=== PATIENT | male | born 1975 | race Caucasian/White ===

== ENCOUNTER 2017-05-15 03:44 | Emergency (ER) | payer OTHER ==
--- NOTE | 2017-05-15 04:25 | ED Physician Documentation ---
PD HPI FEVER - Stated complaint Stated Complaint: CHILLS,LWR BACK PAIN - Chief complaint Chief Complaint: Fever - History obtained from History obtained from: Patient - History of Present Illness Timing - onset: How many days ago (3) Timing duration: Days Timing details: Intermittant, Waxing and waning Associated symptoms: Chills, Sweats, Rigors Recently seen: Clinic - Additional information Additional information: patient has shaking chills, fever, headache, generalized body aches. Seen by his primary care provider at the [facility], had a chest x-ray which reportedly revealed a pneumonia, and influenza swab that was negative, and a urinalysis that suggested a urinary tract infection. he was prescribed prednisone, albuterol inhaler, and doxycycline. He has had three days of the antibiotic so far. He presents at this time due to recurrence of his fever, headache, bodyaches. Review of Systems Constitutional: reports: Fever, Chills, Myalgias, Sweats Ears: reports: Reviewed and negative Nose: reports: Reviewed and negative Throat: reports: Reviewed and negative Cardiac: reports: Reviewed and negative Respiratory: reports: Cough. denies: Dyspnea GI: reports: Reviewed and negative : denies: Dysuria, Frequency, Discharge Skin: denies: Rash Musculoskeletal: denies: Neck pain Neurologic: reports: Headache PD PAST MEDICAL HISTORY - Past Medical History Past Medical History: No - Past Surgical History Past Surgical History: No - Present Medications Home Medications: Ambulatory Orders Medication Instructions Recorded Confirmed Azithromycin [Zithromax] 250 mg PO DAILY #4 tablet 05/15/17 - Allergies Allergies/Adverse Reactions: Allergies Allergy/AdvReac Type Severity Reaction Status Date / Time No Known Drug Allergies Allergy Verified 05/15/17 04:39 - Living Situation Living Situation: reports: With spouse/s.o. Living Arrangement: reports: At home - Social History Does the pt smoke?: No PD ED PE NORMAL - Vitals Vital signs reviewed: Yes - General General: Alert and oriented X 3, No acute distress, Well developed/nourished - HEENT HEENT: Atraumatic, Moist mucous membranes - Neck Neck: Supple, no meningeal sign - Cardiac Cardiac: RRR, No murmur, No gallop, No rub - Respiratory Respiratory: No respiratory distress, Clear bilaterally - Abdomen Abdomen: Soft, Non tender - Back Back: No CVA TTP - Derm Derm: Normal color, Warm and dry, No rash Results - Vitals Vitals: Vital Signs - 24 hr 05/15/17 05/15/17 07:01 08:30 Temperature 39.4 C H 37.6 C H Heart Rate 96 90 Respiratory 18 12 Rate Blood Pressure 143/89 H 121/84 H O2 Saturation 97 98 Oxygen O2 Source Room air - Labs Labs: Laboratory Tests 05/15/17 05/15/17 05:40 05:45 Urine Color YELLOW Urine Clarity CLEAR Urine pH 6.0 Ur Specific [place] >=1.030 H Urine Protein NEGATIVE Urine Glucose (UA) NEGATIVE Urine Ketones NEGATIVE Urine Occult Blood NEGATIVE Urine Nitrite NEGATIVE Urine Bilirubin NEGATIVE Urine Urobilinogen 0.2 (NORMAL) Ur Leukocyte Esterase NEGATIVE Ur Microscopic Review NOT INDICATED Urine Culture Comments NOT INDICATED Influenza A (Rapid) Negative Influenza B (Rapid) Negative Influenza Types A,B Ag - - Rads (name of study) chest xray Radiology: Prelim report reviewed, See rad report PD MEDICAL DECISION MAKING - ED course Complexity details: reviewed results, re-evaluated patient, considered differential, d/w patient ED course: high fever (over 39 in ED) in this well appearing patient who also has generalized myalgias and headache is suggestive of influenza despite a negative swab results here as well as earlier this week at [facility]. He does not have criteria that would put him at higher risk for complications of influenza, and thus will not treat with anti-influenza medication. he has an unremarkable urinalysis today. his chest x-ray is clear. It is possible that he has a partially treated urinary track infection and or pulmonary infection, given that he has already had three days of doxycycline. As he is still spiking high fevers, my recommendation is to discontinue doxycycline and start Zithromax. Also given a dose of IM Rocephin in the emergency department. Departure - Departure Disposition: 01 Home, Self Care Clinical Impression: Fever Condition: Good Instructions: ED Fever Unconf Cause, ED Fever Control Follow-Up: MING JOHNSON MD [Primary Care Provider] - (Wednesday) Prescriptions: Azithromycin [Zithromax] 250 mg PO DAILY #4 tablet Discharge Date/Time: 05/15/17 08:33
--- NOTE | 2017-05-15 05:57 | XRAY Preliminary Report ---
Exam: XR CHEST 2 VIEW PA/LAT IMPRESSION: Normal 2-view chest radiography. [facility] SITE ID: [id number]
--- NOTE | 2017-05-15 06:00 | XRAY Report ---
EXAM: CHEST RADIOGRAPHY EXAM DATE: 05/15/2017 05:52 AM. CLINICAL HISTORY: Cough, fever. COMPARISON: None. TECHNIQUE: 2 views. FINDINGS: Lungs/Pleura: No focal opacities evident. No pleural effusion. No pneumothorax. Normal volumes. Mediastinum: Heart and mediastinal contours are unremarkable. Other: None. IMPRESSION: Normal 2-view chest radiography. [facility] Referring Provider Line: [phone] SITE ID: [id number]
[2017-05-15 06:23] LABS: BILIRUBIN,URINE NEGATIVE (NEGATIVE)
[2017-05-15 06:39] LABS: UA CHARGE (STRIP ONLY) YES; UR CULTURE IF IND NOT INDICATED
[2017-05-15] MEDS ORDERED: ACETAMINOPHEN 325 MG TABLET PO STA (07:21)
[2017-05-15] MEDS ORDERED: ACETAMINOPHEN 325 MG TABLET PO ONE (07:33)
[2017-05-15] MEDS ORDERED: AZITHROMYCIN 250 MG TABLET PO STA (08:02)
[2017-05-15] MEDS ORDERED: cefTRIAXone 1 GM VIAL IM STA (08:02)
[2017-05-15] MEDS ORDERED: LIDOCAINE 1% 2 ML VIAL ONE (08:15)
[2017-05-15] MEDS ORDERED: cefTRIAXone 1 GM VIAL ONE (08:15)
[2017-05-15] MEDS ORDERED: AZITHROMYCIN 250 MG TABLET PO ONE (08:15)
[2017-05-15 08:31] VITALS: BP 121/84
== END 2017-05-15 08:33 | disposition home or self-care (01) ==
LOC: ED 03:44
DX: R50.9 Fever, unspecified (principal); R51 Headache; R53.1 Weakness
CPT/HCPCS: 71020; 81003; 87275; 87276; 96372; 99283; A9270; 81001; 87086

== ENCOUNTER 2019-02-01 01:38 | Emergency (ER) | payer OTHER ==
[2019-02-01 02:22] LABS: BASOPHILS # (AUTO) 0.1 10^3/uL (0.0-0.1); BASOPHILS % (AUTO) 0.7 %; EOSINOPHILS # (AUTO) 0.1 10^3/uL (0.0-0.7); EOSINOPHILS % (AUTO) 1.1 %; HGB - HEMOGLOBIN 14.4 g/dL (14.0-18.0); LYMPHOCYTES # (AUTO) 2.4 10^3/uL (1.5-3.5); LYMPHOCYTES % (AUTO) 27.7 %; MEAN CORPUSCULAR VOLUME 94.2 fL (80.0-94.0); MEAN PLATELET VOLUME 10.2 fL (7.4-11.4); MONOCYTES # (AUTO) 0.6 10^3/uL (0.0-1.0); MONOCYTES % (AUTO) 7.2 %; NEUTROPHILS # (AUTO) 5.5 10^3/uL (1.5-6.6); PLT - PLATELET COUNT 286 10^3/uL (130-450); RED CELL DISTRIBUTION WIDTH 13.5 % (12.0-15.0); WHITE BLOOD COUNT 8.7 x10^3/uL (4.8-10.8)
--- NOTE | 2019-02-01 02:25 | ED Physician Documentation ---
PD HPI ABD PAIN - Stated complaint Stated Complaint: ABD PX - Chief complaint Chief Complaint: Abd Pain - History obtained from History obtained from: Patient - History of Present Illness Timing - onset: How many days ago ((Wednesday)) Timing - duration: Hours Timing - details: Gradual onset, Still present Pain level now: 8 Quality: Pain Improved by: Other (nothing) Worsened by: Breathing, Palpation Associated symptoms: Nausea. No: Fever, Vomiting, Diarrhea, Constipation, Melena, Hematochezia, Dysuria, Hematuria, Chest pain Similar symptoms before: No diagnosis Recently seen: Clinic (similar episode 2 weeks ago, was evaluated at [facility], blood tests and xrays performed, no significant abnormalities nor specific diagnosis (per patient)) - Additional information Additional information: since Wednesday, c/o right upper quadrant pain. gradual onset, gradually progressive in intensity and spreading towards RLQ. Review of Systems Constitutional: denies: Fever, Chills, Sweats Cardiac: reports: Reviewed and negative Respiratory: reports: Reviewed and negative GI: reports: Abdominal Pain, Nausea. denies: Abdominal Swelling, Vomiting, Constipation, Diarrhea, Hematemesis, Bloody / black stool : denies: Dysuria, Frequency, Hematuria Skin: denies: Rash Musculoskeletal: denies: Back pain PD PAST MEDICAL HISTORY - Past Medical History Past Medical History: No Cardiovascular: None Respiratory: None Endocrine/Autoimmune: None GI: None : None HEENT: None Psych: None Musculoskeletal: None Derm: None - Past Surgical History Past Surgical History: No - Present Medications Home Medications: Ambulatory Orders Medication Instructions Recorded Confirmed Azithromycin [Zithromax] 250 mg PO DAILY #4 tablet 05/15/17 Amox/Clav 875/125 [Augmentin] 1 each PO Q12H #14 tablet 02/01/19 Hydrocodone/Acetaminophen 1 - 2 each PO Q6HR PRN #20 tablet 02/01/19 [Hydrocodone-Acetamin 5-325 mg] - Allergies Allergies/Adverse Reactions: Allergies Allergy/AdvReac Type Severity Reaction Status Date / Time No Known Drug Allergies Allergy Verified 02/01/19 01:49 - Social History Does the pt smoke?: No Smoking Status: Never smoker Does the pt drink ETOH?: Yes Does the pt have substance abuse?: No - Immunizations Immunizations are current?: Yes PD ED PE NORMAL - Vitals Vital signs reviewed: Yes - General General: Alert and oriented X 3, No acute distress, Well developed/nourished - HEENT HEENT: Moist mucous membranes - Cardiac Cardiac: RRR, No murmur - Respiratory Respiratory: No respiratory distress, Clear bilaterally - Abdomen Abdomen: Soft, Non distended, No organomegaly, Other (moderate TTP RUQ>RLQ without rebound or guarding, no masses) - Back Back: No CVA TTP - Derm Derm: Normal color, Warm and dry, No rash - Extremities Extremities: No edema Results - Vitals Vitals: Vital Signs - 24 hr 02/01/19 02/01/19 02/01/19 01:41 02:49 03:29 Temperature 36.9 C Heart Rate 65 75 70 Respiratory 16 16 14 Rate Blood Pressure 128/85 H 110/77 116/78 O2 Saturation 97 98 98 02/01/19 02/01/19 05:03 06:01 Temperature 36.4 C L Heart Rate 63 61 Respiratory 14 16 Rate Blood Pressure 110/75 111/81 H O2 Saturation 97 98 Oxygen O2 Source Room air - Labs Labs: Laboratory Tests 02/01/19 02/01/19 02/01/19 02:17 02:17 04:23 WBC 8.7 RBC 4.50 L Hgb 14.4 Hct 42.4 MCV 94.2 H MCH 32.0 H MCHC 34.0 RDW 13.5 Plt Count 286 MPV 10.2 Neut # (Auto) 5.5 Lymph # (Auto) 2.4 [place] # (Auto) 0.6 Eos # (Auto) 0.1 Baso # (Auto) 0.1 Absolute Nucleated RBC 0.00 Nucleated RBC % 0.0 Sodium 140 Potassium 3.7 Chloride 102 Carbon Dioxide 25 Anion Gap 13.0 BUN 20 Creatinine 0.9 Estimated GFR (MDRD) 93 Glucose 104 H Calcium 9.3 Total Bilirubin 1.3 H AST 17 ALT 15 Alkaline Phosphatase 55 Total Protein 6.9 Albumin 4.1 Globulin 2.8 Albumin/Globulin Ratio 1.5 Lipase 38 Urine Color YELLOW Urine Clarity CLEAR Urine pH 6.5 Ur Specific [place] 1.015 Urine Protein NEGATIVE Urine Glucose (UA) NEGATIVE Urine Ketones NEGATIVE Urine Occult Blood NEGATIVE Urine Nitrite NEGATIVE Urine Bilirubin NEGATIVE Urine Urobilinogen 0.2 (NORMAL) Ur Leukocyte Esterase NEGATIVE Ur Microscopic Review NOT INDICATED Urine Culture Comments NOT INDICATED - Rads (name of study) RUQ US Radiology: Prelim report reviewed, See rad report CT A/P Radiology: Prelim report reviewed, See rad report PD MEDICAL DECISION MAKING - ED course Complexity details: reviewed results, re-evaluated patient, considered differential, d/w patient ED course: RUQ US does not reveal etiology of symptoms (incidentally noted polyp) and thus CT A/P with IV contrast performed. CT interpreted as "mild right upper quadrant fat stranding adjacent to the hepatic flexure of the colon may reflect an omental infarct. Differential would include diverticulitis or epiploic appendagitis, but neither is clearly seen. Mildly enlarge prostate" (this is radiologist's interpretation). Thus there is not a clear, definitive etiology, but based on information at this time, there is no evidence of emergent process that would require further emergent/inpatient testing nor inpatient treatment. Pain relief achieved with dilaudid IV (required repeat dose, albeit lower than initial dose) followed by vicodin PO given prior to discharge. Will also cover with PO antibiotic given that diverticulitis remains on the differential despite CT A/P. I explained the concept of omental infarct/epiploic appendigitis to patient, and that this is a painful condition that rarely leads to complications; similarly, concept of diverticulitis reviewed with patient, as well. I also explained that these are possible diagnoses, as there remains no persuasive evidence of the etiology of his symptoms (but the lack of fever, absence of significant serum/urine abnormalities, and lack of concerning findings on CT are reassuring); along these lines, I instructed him to return if worse in any way, including development of other signs/symptoms such as fever or blood in stool. Also instructed to follow up with PCP, next available appointment, for reevaluation. Departure - Departure Disposition: Home, Self Care Clinical Impression: Abdominal pain Condition: Good Health Concerns: abdominal pain Plan of Treatment: rest, analgesic as prescribed, follow up with PCP, return if worse Care Goals: pain control Assessment: see diagnosis Instructions: ED Abdominal Pain Unkn Cause, ED Diverticulitis Follow-Up: [facility] [Provider Group] Prescriptions: Hydrocodone/Acetaminophen [Hydrocodone-Acetamin 5-325 mg] 1 - 2 each PO Q6HR PRN #20 tablet PRN Reason: Pain Amox/Clav 875/125 [Augmentin] 1 each PO Q12H #14 tablet Forms: Activity restrictions Discharge Date/Time: 02/01/19 06:12
[2019-02-01 02:34] LABS: ALBUMIN 4.1 g/dL (3.2-5.5); ALBUMIN/GLOBULIN RATIO 1.5 (1.0-2.2); BILIRUBIN,TOTAL 1.3 mg/dL (0.2-1.0); CALCIUM 9.3 mg/dL (8.5-10.3); CREATININE 0.9 mg/dL (0.6-1.2); TOTAL PROTEIN 6.9 g/dL (6.7-8.2)
[2019-02-01] MEDS ORDERED: HYDROmorphone 1 MG/ML CARPUJECT IVP STA ×2 (02:40→04:27)
--- NOTE | 2019-02-01 04:24 | Ultrasound Report ---
Reason: RUQ pain Procedure Date: 02/01/2019 Accession Number: [id number] / [id number] Procedure: US - Abdomen Limited CPT Code: FULL RESULT: EXAM: ABDOMEN ULTRASOUND LIMITED, RUQ EXAM DATE: 02/01/2019 03:33 AM. CLINICAL HISTORY: RUQ abdominal pain. COMPARISON: None. TECHNIQUE: Real-time scanning was performed with static images obtained. FINDINGS: Liver: Echotexture within normal limits without suspicious abnormality seen. Main portal vein flow: Hepatopetal. Gallbladder: No stones, wall thickening, or sonographic Mirza's sign. Small 5 mm polyp. Biliary System: CBD measures 4 mm. No intrahepatic or extrahepatic ductal dilatation. Other: No right hydronephrosis. IMPRESSION: Negative right upper quadrant ultrasound. [facility]
[2019-02-01 04:28] LABS: BILIRUBIN,URINE NEGATIVE (NEGATIVE); GLUCOSE, URINE (UA) NEGATIVE (NEGATIVE); KETONES,URINE (UA) NEGATIVE (NEGATIVE); LEUKOCYTE ESTERASE, URINE NEGATIVE (NEGATIVE); NITRITE,URINE NEGATIVE (NEGATIVE); OCCULT BLOOD,URINE NEGATIVE (NEGATIVE); PH,URINE 6.5 PH (5.0-7.5); PROTEIN,URINE NEGATIVE (NEGATIVE); UROBILINOGEN,URINE 0.2 (NORMAL) E.U./dL (NORMAL)
[2019-02-01 04:29] LABS: CLARITY,URINE CLEAR (CLEAR)
[2019-02-01] MEDS ORDERED: IOVERSOL 320 100 ML VIAL IVP ONE ×2 (04:46→04:58)
--- NOTE | 2019-02-01 05:18 | CT Report ---
Reason: abdominal pain Procedure Date: 02/01/2019 Accession Number: [id number] / [id number] Procedure: CT - Abdomen/Pelvis W CPT Code: FULL RESULT: EXAM: CT ABDOMEN AND PELVIS EXAM DATE: 02/01/2019 05:00 AM. CLINICAL HISTORY: Abdominal pain. COMPARISONS: ABDOMEN LIMITED 02/01/2019 3:33 AM. TECHNIQUE: Routine helical CT imaging was performed through the abdomen and pelvis. IV contrast: 100 mL Optiray 320. Enteric contrast: No. Reconstructions: Coronal and sagittal. In accordance with CT protocol optimization, one or more of the following dose reduction techniques were utilized for this exam: automated exposure control, adjustment of mA and/or KV based on patient size, or use of iterative reconstructive technique. FINDINGS: Lung Bases: Unremarkable. Liver: Unremarkable. No suspicious masses. Gallbladder/Bile Ducts: Unremarkable. Spleen: Unremarkable. Pancreas: Unremarkable. Adrenal Glands: Unremarkable. Kidneys: Unremarkable. No suspicious masses or hydronephrosis. Peritoneal Cavity/Bowel: Mild fat stranding in the right upper quadrant adjacent to the hepatic flexure of the colon. No definitive diverticula are seen. Appearance not clearly epiploic appendagitis either. No perforation or abscess. Moderate stool burden. Minimal free fluid. Pelvic Organs: Bladder appears unremarkable with the exception of a small urachal remnant. The prostate is mildly enlarged. Vasculature: No aneurysms or other significant abnormality. Bones: No significant abnormality. Other: Small fat-containing periumbilical hernia without apparent complication. IMPRESSION: 1. Mild right upper quadrant fat stranding adjacent to the hepatic flexure of the colon may reflect an omental infarct. Differential would include diverticulitis or epiploic appendagitis, but neither is clearly seen. 2. Mildly enlarged prostate. [facility]
[2019-02-01] MEDS ORDERED: HYDROcod/ACETAM 5/325 MG TABLET PO STA (05:53)
[2019-02-01] MEDS ORDERED: AMOX/CLAV 875 MG/125 MG TABLET PO STA (05:56)
[2019-02-01 06:02] VITALS: BP 111/81
== END 2019-02-01 06:12 | disposition home or self-care (01) ==
LOC: ED 01:38
DX: R10.11 Right upper quadrant pain (principal); K82.4 Cholesterolosis of gallbladder
CPT/HCPCS: 36415; 74177; 76705; 80053; 81003; 83690; 85025; 96374; 96376; 99283; 99284; A9270; J1170; Q9967; 81001; 87086

== ENCOUNTER 2019-09-11 14:18 | Outpatient (CLI) | payer OTHER ==
--- NOTE | 2019-09-12 08:47 | MRI Report ---
Reason: LT KNEE PAIN Procedure Date: 09/11/2019 Accession Number: [id number] / [id number] Procedure: MRI - Knee LT W/O CPT Code: Final Report FULL RESULT: EXAM: LEFT KNEE MRI WITHOUT CONTRAST EXAM DATE: 09/11/2019 03:16 PM. CLINICAL HISTORY: Left knee pain. COMPARISON: None. TECHNIQUE: Multiplanar, multisequence T1-weighted and fluid-sensitive sequences of the knee without contrast. Other: None. FINDINGS: Cruciate ligaments: The anterior and posterior cruciate ligaments appear intact. Medial meniscus: Intact. No tear is identified. Lateral meniscus: Intact. No tear is identified. Collateral ligaments: The medial and fibular collateral ligaments appear intact. Bones and articular surfaces: Moderate-sized joint effusion. Approximately 2.0 x 2.2 cm high-grade articular cartilage defect at the central trochlea. Fissuring of the remaining articular cartilage at this site. Mild cartilage surface irregularity over the patella. Slight degree of cartilage thinning and surface irregularity in the weightbearing medial compartment. Minimal cartilage surface irregularity at the central aspect of the lateral tibial plateau. Marrow signal appears within normal limits. Possible loose body within the joint space posterior medial to midline approximately 1.0 x 0.5 x 1.5 cm. Another smaller possible chondral fragment lateral to midline approximately 1.2 x 0.2 x 0.7 cm. Extensor mechanism: The patellar tendon and quadriceps insertion appear intact. IMPRESSION: 1. 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 2. Ill-defined loose bodies within the posterior joint space near midline suspicious for chondral fragments. 3. Moderate-sized joint effusion. 4. Mild tricompartmental osteoarthritis. [facility]
== END 2019-09-11 14:19 | disposition home or self-care (01) ==
LOC: DI 14:18
PROVIDERS: ATTEND General Practice
DX: M23.92 Unspecified internal derangement of left knee (principal); M23.42 Loose body in knee, left knee; M25.462 Effusion, left knee; M17.12 Unilateral primary osteoarthritis, left knee